=== PATIENT | male | born 1955 | race Caucasian/White ===

== ENCOUNTER → 2023-11-12 | Outpatient (CLI) | payer MEDICARE ==
--- NOTE | 2023-11-14 12:43 | MR ---
EXAMINATION TYPE: MR knee RT wo con DATE OF EXAM: 11/12/2023 COMPARISON: Right knee x-ray October 31, 2023 HISTORY: Right knee pain and weakness. TECHNIQUE: Multiplanar, multisequence images of the knee is performed without IV contrast. FINDINGS: MEDIAL MENISCUS: Horizontal oblique signal posterior horn likely extends to Inferior articular surfac e. LATERAL MENISCUS: Anterior and posterior horns are intact without tear. CRUCIATE LIGAMENTS: The anterior and posterior cruciate ligaments are intact and unremarkable. COLLATERAL LIGAMENTS: The medial collateral ligament and lateral collateral ligament complex are inta ct and unremarkable. EXTENSOR MECHANISM: Visualized quadriceps and patellar tendons are intact. EFFUSION: No significant suprapatellar joint effusion. POPLITEAL CYST: No popliteal/servin cyst. TRICOMPARTMENT SPACES: [id number] tricompartment joint space loss. No significant spurring. CARTILAGE: Mild cartilaginous loss in the medial tibiofemoral compartment. Areas of cartilaginous los s medial aspect of the posterior patellar pole are seen. BONE MARROW SIGNAL: Subtle areas of increased T2 signal medial aspect of posterior patellar pole are noted. OTHER: No additional significant abnormality is appreciated. IMPRESSION: 1. At least intrasubstance but suspected full-thickness tear posterior horn medial meniscus. 2. Mild to borderline moderate tricompartment degenerative changes most prominent medial tibiofemoral and patellofemoral compartments as detailed above.
== END | disposition home or self-care (01) ==
LOC: RADMRIMAIN 17:08
PROVIDERS: ATTEND Orthopaedic Surgery
DX: S83.241A Other tear of medial meniscus, current injury, right knee, initial encounter (principal); M17.11 Unilateral primary osteoarthritis, right knee; X58.XXXA Exposure to other specified factors, initial encounter

== ENCOUNTER → 2024-05-21 | Outpatient (CLI) | payer MEDICARE ==
--- NOTE | 2024-05-21 16:45 | XR ---
EXAMINATION TYPE: XR lumbar spine 2 or 3V DATE OF EXAM: 05/21/2024 CLINICAL HISTORY: Pain radiating down into left leg, no history of trauma TECHNIQUE: Three views of the lumbar spine are submitted. COMPARISON: None. FINDINGS: There are 5 lumbar type vertebral bodies identified. The lumbar spine shows satisfactory alignment w ithout evidence of acute fracture or dislocation. Vertebral body heights are within normal limits. Multilevel disc space narrowed with endplate sclerosis. Large prominent anterior osteophytes from L2 through S1. Multilevel facet arthropathy of the lower lumbar spine. The overlying soft tissue appears unremarkable. IMPRESSION: 1. No acute fracture or dislocation is seen in the lumbar spine. Moderate multilevel degenerative disc disease most pronounced in the lower lumbar spine. [facility], , 05/21/2024 4:42 PM
== END | disposition home or self-care (01) ==
LOC: RADXRMAIN 14:09
PROVIDERS: ATTEND Internal Medicine
CPT/HCPCS: 72100

== ENCOUNTER → 2024-07-03 | Outpatient (CLI) | payer MEDICARE ==
[2024-07-03 16:39] VITALS: BP 128/71; PULSE 80; RESP 16; TEMP 98
--- NOTE | 2024-07-03 17:22 | P.SLEEP ---
History of Present Illness DATE: 07/03/2024 CONSULTATION/NEW PATIENT EVALUATION HISTORY OF PRESENT ILLNESS/SLEEP-WAKE EVALUATION: 69-year-old gentleman had been evaluated in the sleep center for possible obstructive sleep apnea hypopnea syndrome. Patient his sleep study in 2020 another institution which showed respiratory event index 20.6. He was not started on treatment with CPAP at the time. SLEEP SCHEDULE: Usually sleep schedule from 10 PM to 6 AM on weekdays and from 11 PM to 7 AM on weekend. FALLING ASLEEP: No problems with falling asleep. DURING SLEEP: Patient snores and wakes up from sleep 2 times. Positive history of movements during the sleep. No history of hypnogogical hallucinations, sleep paralysis, or cataplexy. DURING THE DAY/WAKE STATE: During the day patient may have problems with memory. [place] sleepiness scale is 9. Patient does not take naps. PAST MEDICAL HISTORY: Hypertension, hyperlipidemia. PAST SURGICAL HISTORY: Septoplasty, turbinoplasty, surgery for umbilical hernia. MEDICATIONS: Please see below. SOCIAL HISTORY: Please see below. FAMILY HISTORY: Please see below. REVIEW OF SYSTEMS: Snoring awakenings from sleep. No fevers. No double vision. No recent chest pain. No shortness of breath. No abdominal pain. No bleeding episodes. No blood in urine. No seizure episodes. PHYSICAL EXAMINATION: GENERAL: A pleasant patient without any distress. VITAL SIGNS: Please see below weight 273 pounds, BMI 35. HEENT: PERRLA, EOMI. Evaluation of oropharynx showed tongue protrudes midline, low position of soft palate Mallampati 4. NECK: Supple. No JVD. Thyroid is not palpable. 16.5 inches in circumference. LUNGS: Clear to percussion and to auscultation. Good air exchange. No wheezing or rhonchi. HEART: S1, S2 regular. No murmurs, gallops or rubs. ABDOMEN: Soft and nontender. Bowel sounds are present. No organomegaly appreciated. EXTREMITIES: No clubbing or cyanosis. CHUCK BONER: Awake, alert, and oriented x3. Cranial nerves 2 to 7 intact. There is no fasciculation or atrophy noted. No focal deficits observed. ASSESSMENT: 1. Snoring, multiple awakenings from sleep, extremely low position of soft palate Mallampati 4. Obstructive sleep apnea hypopnea syndrome. 2. Hypertension. 3. Hyperlipidemia. 4. Status post septoplasty and turbinoplasty. 5 status post umbilical hernia repair. 6 . Mild obesity, BMI 35. PLAN: 1. Polysomnography for evaluation of patient's breathing during sleep. 2. Following plan after reading sleep study. 3. Preferable position during sleep on the side. 4. No driving if patient feels any sleepiness. Patient is aware of civil and criminal liability for unsafe driving. 5. Sleep hygiene with regular sleep time for at least 7.5-8 hours. 6. Watching and losing weight. Thank you very much for referring this patient for consultation. Sincerely, Sadiq Mullen MD, PhD, FAASM. Diplomat of [place] [employer], Sleep Medicine Board by [place] [employer]drometer Tester of [facility] [place] cc: Hitesh Benítez MD Past Medical History Past Medical History: Hyperlipidemia, Hypertension Additional Past Medical History / Comment(s): vein blockage History of Any Multi-Drug Resistant Organisms: None Reported Past Surgical History: Tonsillectomy Additional Past Surgical History / Comment(s): nasal surgery, Past Psychological History: No Psychological Hx Reported Smoking Status: Former smoker - Past Family History Mother Family Medical History: Diabetes Mellitus, Hypertension, Liver Disease Additional Family Medical History / Comment(s): emphysema, arthritis unknown ty pe Brother(s) Family Medical History: COPD, Sleep Apnea/CPAP/BIPAP Additional Family Medical History / Comment(s): nasal polyps Sister(s) Family Medical History: Diabetes Mellitus, Hypertension Physical Exam Vitals: Vital Signs Temp Pulse Resp BP Pulse Ox 07/03/24 16:38 98 F 80 16 128/71 96 Sleep Note - Sleep Data ESS Total: 9 - Sleep Note Sleep Note: Temperature: 98 F Pulse Rate: 80 Respiratory Rate: 16 Blood Pressure: 128/71 SpO2: 96 Height: Weight: BMI: Neck Circumference: 16.5
== END ==
LOC: 3 N SLEEP 15:48
PROVIDERS: ATTEND Internal Medicine
DX: G47.33 Obstructive sleep apnea (adult) (pediatric) (principal); I10 Essential (primary) hypertension; E78.5 Hyperlipidemia, unspecified; E66.9 Obesity, unspecified; Z98.890 Other specified postprocedural states; Z68.35 Body mass index [BMI] 35.0-35.9, adult
CPT/HCPCS: 99211

== ENCOUNTER 2024-07-08 19:26 | Outpatient (CLI) | payer MEDICARE ==
--- NOTE | 2024-07-16 14:56 | P.PCN ---
Description of Procedure: POLYSOMNOGRAPHY REPORT PROCEDURE(S)/DATE(S): Polysomnography 07/08/2024 CLINICAL: Patient has been seen in the sleep center for evaluation of obstructive sleep apnea-hypopnea syndrome. Please see my consultation. Sleep study has been done for evaluation of patient breathing during the sleep. PROCEDURE: The standard montage for clinical polysomnography included the electroencephalogram, the electrooculogram, the mentalis surface electromyography and Lead II cardiography. The respiratory battery consisted of measurements of nasal/buccal air flow, pressure transducer measurements from nose, thoracic and/or abdominal effort and intercostal surface electromyography. Video monitoring has been done to check for any parasomnia events. Nocturnal oxyhemoglobin saturations were obtained by finger oximetry. Step-sargent titration with positive airway pressure was utilized to control the respiratory events, if necessary. RESULTS: During the diagnostic sleep study sleep efficiency was extremely short 54.8%. Latency to sleep onset was borderline 25.5 min. Sleep architecture sh owed stage NI was significantly increased to 18.9%, Delta sleep was absent 0%, REM sleep was extremely short 2.9%. Respiratory channel showed 181 obstructive apneas, 2 mixed apneas, 0 central apneas, 98 hypopneas with lowest oxygen level 61%. Total apnea hypopnea index was 74.3. Heart rate was in the range between 60 and 73, average 64. EMG showed 0 periodic limb movements per hour with 0 micro-arousals per hour. IMPRESSIONS: 1. Extremely severe obstructive sleep apnea hypopnea syndrome with extremely severe oxygen desaturation. 2. No significant periodic limb movements have been documented. Please see other impressions from consultation PLAN: 1. The patient will have PAP titration for correction of respiratory abnormalities during the sleep. 2. Losing weight program. 3. Sleep hygiene with regular time in bed for at least 7-1/2 hours. 4. No driving if feeling sleepiness. Thank you very much for allowing me to participate in the management of your patient. Sincerely, Sadiq Mullen MD, PhD, FAASM. Diplomat of [place] [employer], Sleep Medicine Board by [employer] Cleaner of [facility] [place] cc: Hitesh Benítez MD
== END 2024-07-09 05:30 | disposition home or self-care (01) ==
LOC: 3 N SLEEP 19:26
PROVIDERS: ATTEND Internal Medicine
DX: G47.33 Obstructive sleep apnea (adult) (pediatric) (principal); G47.36 Sleep related hypoventilation in conditions classified elsewhere
CPT/HCPCS: 95810

== ENCOUNTER → 2024-07-18 | Outpatient (CLI) | payer MEDICARE ==
--- NOTE | 2024-07-19 20:01 | MR ---
EXAMINATION TYPE: MR brain wo/w con DATE OF EXAM: 07/18/2024 12:08 PM COMPARISON: None. CLINICAL INDICATION: Male, 69 years old with history of R41.3 AMNESIA, Memory loss. IV Contrast: 12 cc Gadobutrol (None if empty) TECHNIQUE: Multiplanar, multisequence images of the brain and brainstem were acquired before and aft er administration of 12 mL IV Gadobutrol. Diffusion weighted imaging is performed. FINDINGS: No evidence for acute infarction, hemorrhage, mass, mass effect, midline shift, herniation, effacemen t of basal cisterns, or extra-axial fluid collection. The ventricles and sulci are age-appropriate. Major intracranial flow voids are intact. However, we note a relatively small caliber to the vertebro basilar arteries with persistent origin of the bilateral posterior cerebral arteries. T2/FLAIR weighted sequences show minimal scattered bright signal foci in the periventricular and deep white matter regions with only a couple foci on either side. There is some excessive fullness of the pituitary gland measuring 9 mm in height. Otherwise, midline structures demonstrate normal morphology. The craniocervical junction is normal. Post contrast images demonstrate no evidence of pathologic enhancement. Dural venous sinuses are pat ent. There is moderate mucosal thickening ethmoid air cells. The globes are intact. Prominent fluid throug hout the right mastoid air cells. IMPRESSION: 1. No acute intracranial abnormality seen. Trace burden of chronic small vessel ischemic disease. 2. Fullness of the pituitary gland with a measurement of 9 mm in height. Consider laboratory assessme nt and dedicated pituitary MRI to exclude underlying adenoma. 3. Moderate chronic ethmoid sinus disease. Additionally, there is trapped fluid in the right mastoid air cells. Correlate for any mastoid pain to exclude mastoiditis. [facility], , 07/19/2024 7:59 PM
== END | disposition home or self-care (01) ==
LOC: RADMRIMAIN 10:50
PROVIDERS: ATTEND Internal Medicine
DX: R41.3 Other amnesia (principal); I67.82 Cerebral ischemia; J32.2 Chronic ethmoidal sinusitis
CPT/HCPCS: 70553

== ENCOUNTER → 2024-07-31 | Outpatient (CLI) | payer MEDICARE ==
[2024-07-31 19:23] LABS: ALT 19 U/L (10-49); AST 23 U/L (14-35); Chol/HDL Ratio 3.95 Ratio; LDL Cholesterol,Calculated 79.2 mg/dL (0.0-131.0)
== END | disposition home or self-care (01) ==
LOC: LABWHC1 12:26
PROVIDERS: ATTEND Internal Medicine Cardiovascular Disease
DX: E78.5 Hyperlipidemia, unspecified (principal)
CPT/HCPCS: 36415; 80061; 84450; 84460

== ENCOUNTER → 2024-08-02 | Outpatient (CLI) | payer MEDICARE ==
[2024-08-02 13:21] LABS: ALT 18 U/L (10-49); AST 18 U/L (14-35); Albumin 4.2 g/dL (3.8-4.9); Alkaline Phosphatase 39 U/L (41-126); Blood Urea Nitrogen 21.2 mg/dL (9.0-27.0); Calcium 9.4 mg/dL (8.7-10.3); Chloride 108 mmol/L (96-109); Chol/HDL Ratio 3.33 Ratio; Creatine Kinase 104 U/L (35-257); Glucose 97 mg/dL (70-110); LDL Cholesterol,Calculated 74.1 mg/dL (0.0-131.0); Potassium 4.6 mmol/L (3.5-5.5); Sodium 144 mmol/L (135-145); Total Bilirubin 0.5 mg/dL (0.3-1.2); Total Protein 6.2 g/dL (6.2-8.2)
[2024-08-02 15:13] LABS: Follicle Stimulating Hormone 42.6 mIU/mL; Luteinizing Hormone 23.1 mIU/mL
== END | disposition home or self-care (01) ==
LOC: LABWHC1 07:40
PROVIDERS: ATTEND Internal Medicine
DX: E78.2 Mixed hyperlipidemia (principal); E22.8 Other hyperfunction of pituitary gland; E55.9 Vitamin D deficiency, unspecified
CPT/HCPCS: 36415; 80053; 80061; 82024; 82306; 82533; 82550; 83001; 83002; 84146; 84403; 84443

== ENCOUNTER → 2024-08-07 | Outpatient (CLI) | payer MEDICARE ==
--- NOTE | 2024-08-07 11:53 | MR ---
EXAMINATION TYPE: MR pituitary wo/w con DATE OF EXAM: 08/07/2024 11:22 AM COMPARISON: None. 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 IV Contrast: 12 cc Gadobutrol (None if empty) TECHNIQUE: Multiplanar, multisequence images of the pituitary gland is performed without and with IV contrast, u tilizing 12 mL intravenous Gadobutrol . FINDINGS: Mild fullness of the pituitary gland measuring 9 mm. Homogeneous enhancement. There is slig ht convexity to the upper margin of the pituitary. Minimal left-sided deviation of pituitary stock. The craniocervical junction maintained. Orbits are symmetric. Visualized intracranial structures are symmetric. Optic chiasm has a normal appearance. IMPRESSION: 1. No diagnostic evidence of pituitary microadenoma. However, the pituitary is prominent size measuri ng 9 mm with a convex margin to the superior portion of the gland which could be associated with a sm all macroadenoma. Correlate clinically. [facility], , 08/07/2024 11:51 AM
== END | disposition home or self-care (01) ==
LOC: RADMRIMAIN 10:08
PROVIDERS: ATTEND Internal Medicine
DX: E22.8 Other hyperfunction of pituitary gland (principal)
CPT/HCPCS: 70553; A9585

== ENCOUNTER 2024-08-28 19:44 | Outpatient (CLI) | payer MEDICARE ==
--- NOTE | 2024-09-03 15:23 | P.PCN ---
Description of Procedure: CLINICAL: Titration with positive air pressure has been done for correction of respiratory abnormalities during sleep. DESCRIPTION OF PROCEDURE: The standard montage for clinical polysomnography included the electroencephalogram, the electrocardiogram, the mentalis surface electromyography and Lead II cardiography. The respiratory battery consisted of measurements of nasal /buccal air flow, pressure transducer measurements from the nose, thoracic and /or abdominal effort and intercostal surface electromyography. Video monitoring has been done to check for any parasomnia events. Nocturnal oxyhemoglobin saturations were obtained by finger oximetry. Step-sargent titration with positive airway pressure was utilized to control respiratory events. Raw data of sleep recording has been reviewed and is adequate. RESULTS: Sleep efficiency was approximately 62.2%. Latency to sleep onset was slightly increased to 31.0 minutes.]. Sleep architecture showed stage N1 was extremely short 0.2%, Delta sleep was absent 0%, REM sleep was short 10.5%. Heart rate was minimum 62 BPM, maximum 71 BPM, average 65 BPM. EMG showed 9.9 periodic limb movements per hour with 0.5 micriarousals per hour. PAP titration have been done with CPAP up to the pressure 12 cm H2O. The best results were at the pressure 12 cm H2O. Apnea hypopnea index reduced to 0. IMPRESSION: 1. Obstructive sleep apnea hypopnea syndrome mostly on controle with PAP treatment. 2. Very minimal amount of periodic limb movements have been documented, in normal range by today criteria. Please see other impressions from consultation. PLAN: 1. The patient will have treatment with positive air pressure equipment with the level of pressure AutoPap 7-14 cm H2O and should use it every night for the whole night. 2. Watching and losing weight. 3. Sleep hygiene with regular time in bed for at least 8 hours. 4. No driving if feeling any sleepiness. 5. I will see the patient for follow up visit to explain the results of the test, recommendations, check compliance with treatment and make any necessary adjustment related to mask fitting, pressure and humidification. 6. Please check iron profile including ferritin level. Low level of iron may increase risk for periodic limb movements Thank you very much for allowing me to participate in the management of your patient. Sincerely, Sadiq Mullen MD, PhD, FAASM Diplomat of [place] Sleep Medicine Board of [place] [employer] Compilation Clerk [facility] [place] cc: Hitesh Benítez MD
== END 2024-08-29 05:15 | disposition home or self-care (01) ==
LOC: 3 N SLEEP 19:44
PROVIDERS: ATTEND Internal Medicine
DX: G47.33 Obstructive sleep apnea (adult) (pediatric) (principal); G47.61 Periodic limb movement disorder
CPT/HCPCS: 95811

== ENCOUNTER → 2024-10-29 | Outpatient (CLI) | payer MEDICARE ==
[2024-10-29 15:46] VITALS: BP 136/66; PULSE 70; RESP 16; TEMP 97.9
--- NOTE | 2024-10-29 16:45 | P.PROGSL ---
Subjective DATE: 10/29/2024 FOLLOW UP VISIT. Patient with obstructive sleep apnea hypopnea syndrome return to sleep center for follow-up visit. Recently patient had sleep study which documented obstructive sleep apnea hypopnea syndrome. Patient was initiated on PAP therapy and today is first visit after treatment was started. Patient was able to use PAP equipment every night for the whole night. The patient does not have significant problems with the mask, PAP pressure and humidification. [place] sleepiness scale is 2, which is perfect. I checked information from PAP unit. PAP unit pressure 5-14, average 12.2 cm H2O. Usage is 100% at 97% for more then 4 hours, average 8 hours per night. Leak is 17.2 l/m, which is in acceptable range. Apnea Hypopnea Index is 6.0, which is borderline. MEDICATIONS: Please see below During physical exam: GENERAL: A pleasant patient without any distress. VITAL SIGNS: Please see below, weight 274.0 pounds. HEENT: PERRLA, EOMI.low position of soft palate, Mallapati 4 . NECK: Supple. No JVD. LUNGS: Clear to percussion and to auscultation. Good air exchange. No wheezing or rhonchi. HEART: S1, S2 regular. ABDOMEN: Soft and nontender.[] EXTREMITIES: No clubbing or cyanosis. WOMEN'S LACROSSE COACH: Awake, alert, and oriented x3. No focal deficit. Impressions: 1. Extremely severe obstructive sleep apnea-hypopnea syndrome, apnea hypopnea index during diagnostic polysomnogram 74.3. Patient demonstrated great compliance with treatment, benefiting from treatment. 2. Hypertension. 3. Hyperlipidemia. 4. Status post septoplasty and turbinoplasty. 5. Status post umbilical hernia repair. 6. Mild obesity. Plan: 1. Continue using PAP equipment every night for the whole night. 2. To change air filter at least 1-2 times per month. 3. PAP unit should stay lower then position of the head. 4. Advised patient to remove all remaining water from humidifier canister daily and make it dry after each usage. Refill canister with fresh distilled water before each usage. 5. Sleep hygiene with regular time in bed for at least 8 hours. 6. Precautions related to driving. No driving if feel any sleepiness. 7. I will maintain prescription for PAP supplies including mask, tube, filters. 8. Follow up visit in 8 months or earlier if patient has any problems. 9. Watching and losing weight. Thank you very much for allowing me to participate in the management of your patient. Sadiq Mullen MD, PhD, FAASM. Diplomat of [place] [employer], Sleep Medicine Board by [place] [employer] [facility] [place] Objective - Vital Signs Vital Signs: Vital Signs Temp 97.9 F 10/29/24 15:45 Pulse 70 10/29/24 15:45 Resp 16 10/29/24 15:45 BP 136/66 10/29/24 15:45 Pulse Ox 96 10/29/24 15:45 FiO2
== END ==
LOC: 3 N SLEEP 15:28
PROVIDERS: ATTEND Internal Medicine
DX: G47.33 Obstructive sleep apnea (adult) (pediatric) (principal); I10 Essential (primary) hypertension; E78.5 Hyperlipidemia, unspecified; E66.9 Obesity, unspecified; Z98.890 Other specified postprocedural states
CPT/HCPCS: 99212

== ENCOUNTER → 2025-02-24 | Outpatient (CLI) | payer MEDICARE ==
[2025-02-24 15:34] LABS: Basophils # (A) 0.04 X 10*3/uL (0.00-0.10); Basophils % (A) 0.8 %; Eosinophils # (A) 0.12 X 10*3/uL (0.04-0.35); Eosinophils % (A) 2.3 %; HCT 42.8 % (39.6-50.0); HGB 13.7 g/dL (13.0-17.0); Immature Grans, Automated 0.20 %; Lymphocytes # (A) 1.59 X 10*3/uL (0.90-5.00); Lymphocytes % (A) 29.9 %; MCH 29.9 pg (27.0-32.0); MCHC 32.0 g/dL (32.0-37.0); MCV 93.4 FL (80.0-97.0); Monocytes # (A) 0.80 X 10*3/uL (0.20-1.00); Monocytes % (A) 15.1 %; NRBC Per 100 WBC 0 X 10*3/uL (0.00-0.01); Neutrophils # (A) 2.75 X 10*3/uL (1.80-7.70); Neutrophils % (A) 51.7 %; Platelet Count 159 X 10*3/uL (140-440); RBC 4.58 X 10*6/uL (4.40-5.60); RDW 13.9 % (11.5-14.5); WBC 5.31 X 10*3/uL (4.50-10.00)
[2025-02-24 15:54] LABS: ALT 23 U/L (10-49); AST 22 U/L (14-35); Albumin 4.3 g/dL (3.8-4.9); Albumin/Globulin Ratio 2.26 Ratio (1.60-3.17); Alkaline Phosphatase 36 U/L (41-126); Anion Gap 11.80 mmol/L (4.00-12.00); BUN/Creat Ratio 22.56 Ratio (12.00-20.00); Blood Urea Nitrogen 20.3 mg/dL (9.0-27.0); Calcium 9.3 mg/dL (8.7-10.3); Carbon Dioxide 24.2 mmol/L (21.6-31.8); Chloride 107 mmol/L (96-109); Cholesterol 105.00 mg/dL (0.00-200.00); Globulin 1.9 g/dL (1.6-3.3); Glucose 92 mg/dL (70-110); HDL Cholesterol 40.20 mg/dL (40.00-60.00); LDL Cholesterol,Calculated 50.8 mg/dL (0.0-131.0); Potassium 4.3 mmol/L (3.5-5.5); Sodium 143 mmol/L (135-145); Total Protein 6.2 g/dL (6.2-8.2); Triglycerides 69.90 mg/dL (0.00-149.00); VLDL Calculation 13.98 mg/dL (5.00-40.00)
== END | disposition home or self-care (01) ==
LOC: LABWHC1 10:01
PROVIDERS: ATTEND Internal Medicine
DX: Z11.3 Encounter for screening for infections with a predominantly sexual mode of transmission (principal); E78.2 Mixed hyperlipidemia; N40.0 Benign prostatic hyperplasia without lower urinary tract symptoms; R73.01 Impaired fasting glucose; R41.3 Other amnesia
CPT/HCPCS: 36415; 80053; 80061; 83036; 84443; 85025; 85652; 86780